=== PATIENT | male | born 1965 | race Caucasian/White ===

== ENCOUNTER 2024-12-13 09:01 | Outpatient (AMB) | payer OTHER, SELFPAY ==
--- NOTE | 2024-12-13 09:08 | A.OFFVIS_ITS ---
Vital Signs 12/13/24 09:09 Height 6 ft 1 in Weight 238 lb BMI 31.4 BP 136/88 Blood Pressure Location Rt brachial Position Sitting Pulse 82 Pulse Source Pulse Oximeter Pulse Oximetry (%) 97 Oxygen Delivery Method Room Air Intake Visit Reasons: 07/11LVM+Let ENP-Tremor Intake Note: Patient referred by [facility] for tremors Allergies Iodinated Contrast Media (Contrast Dye) Allergy (Severe, Verified 12/13/24 09:10) swelling Medication List - Last Reconciled 12/13/24 by Mima Staley MD atorvastatin 80 mg PO DAILY carbidopa-levodopa 25-100 mg 1 tab PO TID losartan 50 mg PO DAILY metformin 1,000 mg PO BID tadalafil 10 - 20 mg PO DAILY PRN HPI Comments Details: 59y/o Right handed male comes for evaluation of left hand tremors at rest. He started noticing tremors 3 years ago when he had a stressful event in his family. It was mild and intermittent but has mildly worsened. He also feels his left hand is tired and weaker , stiffer. he can still function . Speech- voice is softer, no drooling Hand writing- good No difficulty with using utensils, can dress and shower No trouble turning in bed Memory- good Sleep- interrupted sleep.He used to act out his dremas few years ago. Mood- stable Gait- going upstairs is difficult , mild slowing . he rogers d [place] last year when he tripped over the gas pump No exposure to agent orange no head injury .He used to work around pesticides No fh/o tremors Bowel movements stable Bladder- good [facility] Medical History (Updated 12/13/24 @ 09:53 by Mima Staley MD) Snoring Hypersomnia Parkinsons disease Hyperglycemia Depression Microscopic hematuria Hyperlipidemia HTN (hypertension) Surgical History H/O hand surgery Family History Mother Restless leg syndrome Social History Alcohol intake: current Patient Tobacco Use Status: Current everyday Tobacco user Physical Exam Vital Signs: Last Vital Signs Pulse 82 12/13/24 09:09 BP 136/88 12/13/24 09:09 Pulse Ox 97 12/13/24 09:09 Oxygen Delivery Method Room Air 12/13/24 09:09 BMI result Body Mass Index 31.4 Const General: cooperative, healthy appearing, comfortable and no acute distress Nutritional Appearance: obese Orientation/consciousness: patient oriented x3 Eyes Pupils: Equal, round and reactive pupils present Neuro Other: Mallampatti grade 4 Decreased facial expression and blink Speech - hypophonia Left UE rest tremors - moderate amplitude Left shoulder tight Tone increased karissa L>R FFM and foot taps - decreased L>R Gait - decreased arm swings karissa l>R, small steps, mild stoop General: patient oriented x3, moves all extremities and no focal motor deficits Cranial nerves: Yes Facial sensation intact/muscles of mastication intact, Yes Equal, round and reactive pupils present, Yes Bilaterally intact EOM present, Yes Normal facial strength present, Yes Midline tongue present, Yes Symmetric palate elevation present and Yes Ability to bilaterally elevate shoulders present Cognition (Neuro): normal cognition Motor exam (neuro): 5/5 motor strength present throughout Deep tendon reflexes (DTR's): Right triceps reflex intensity grade: 2+, Left triceps reflex intensity grade: 2+, Rt Biceps (C5, C6): 2+, Left biceps reflex intensity grade: 2+, Right brachioradialis reflex intensity grade: 2+, Left brachioradialis reflex intensity grade: 2+, Right patellar reflex intensity grade: 2+ and Left patellar reflex intensity grade: 2+ Coordination: [id number] test normal Assessment & Plan Assessment & Plan (1) Parkinsons disease: Code(s): G20.A1 - Parkinson's disease without dyskinesia, without mention of fluctuations Category: Medical Qualifiers: Dyskinesia presence: without dyskinesia Fluctuating manifestations: without fluctuating manifestations Qualified Code(s): G20.A1 - Parkinson's disease without dyskinesia, without mention of fluctuations (2) Hypersomnia: Code(s): G47.10 - Hypersomnia, unspecified Category: Medical (3) Snoring: Code(s): R06.83 - Snoring Category: Medical Plan Explained the diagnosis in detail . MRI brain to r/o structural causes I will trial him on higher dose carbidopa/elevodopa 25/100 - 2 tabs tid - interactions with protien discussed PT for gait training Home sleep test to r/o sleep apnea. Orders: Orders MR head/brain wo con Today G20.A1 - Parkinson's disease without dyskinesia, without mention of fluctuations RT home sleep study Today G47.10 - Hypersomnia, unspecified, R06.83 - Snoring PT Evaluation and Treatment Today G20.A1 - Parkinson's disease without dyskinesia, without mention of fluctuations Medications: New carbidopa-levodopa 25-100 mg 2 tabs PO TID 540 tabs 2RF 90 days Coding Level of Care Code New Pt Level 4 (34130) Complex EM visit Add On G2211 Diagnoses Parkinson's disease without dyskinesia or fluctuating manifestations G20.A1 Dyskinesia presence: without dyskinesia Fluctuating manifestations: without fluctuating manifestations Hypersomnia G47.10 Snoring R06.83
[2024-12-13 09:09] VITALS: BP 136/88; PULSE 82; O2SAT 97; BMI 31.4
--- OUTSIDE RECORDS SUMMARY | 2024-12-13 09:42 | XMS_ITS | Clinical Summary ---
Author Organization [address] Address [address] [place] [address] Phone Care Team Providers Care Facility Practice Specialist Name Role Phone Supa Dobson MD Primary Care Provider [phone] Allergies No known active allergies Medications tadalafiL (CIALIS) 20 mg tablet Take 1 tablet (20 mg total) by mouth 1 (one) time each day if needed for erectile dysfunction. Active Cortisporin-TC 3.3-3-10-0.5 mg/mL otic suspension SHAKE LIQUID AND INSTILL 4 DROPS TO AFFECTED EAR THREE TIMES DAILY 05/26/2024 Active metFORMIN (GLUCOPHAGE) 500 mg tablet Take 2 tablets (1,000 mg total) by mouth 2 (two) times a day. 08/26/2024 Active losartan (COZAAR) 50 mg tablet Take 1 tablet (50 mg total) by mouth 1 (one) time each day. 09/18/2024 Active carbidopa-levod opa (SINEMET) 25-100 mg per tablet Take 1 tablet by mouth. 08/18/2024 Active amoxicillin-cla vulanate (AUGMENTIN) 875-125 mg per tablet Take 1 tablet by mouth 2 (two) times a day. 05/17/2024 Active atorvastatin (LIPITOR) 80 mg tablet Take 1 tablet (80 mg total) by mouth 1 (one) time each day. 08/26/2024 Active Encounters Date Type Department Care Team Description 09/28/2024 Telephone Gastroenterology - [address] [address] Triston Bo MD from Last 3 Months Social History Tobacco Use Types Packs/Day Years Used Date Smoking Tobacco: Never Assessed Sex and Gender Information Value Date Recorded Sex Assigned at Not on file Legal Sex Male 10:52 AM EDT Gender Identity Not on file Sexual Orientation Not on file Plan of Treatment Health Maintenance Due Date Last Done Comments DTaP,Tdap,and Td Vaccines (1 - Tdap) 1986 Hepatitis B Vaccines (1 of 3 - 19+ 3-dose series) 1986 Pneumococcal Vaccine: 50+ Ye ars (1 of 1 - PCV) 2017 Zoster Vaccines (1 of 2) 2017 COVID-19 Vaccine (1 - 2023-2 5 season) 2024 Cholesterol Screening (Lipid Panel) 09/28/2024 Colorectal Cancer Screening: Colonoscopy 09/28/2024 Depression Screening 09/28/2024 HIV Screening 09/28/2024 Hepatitis C Screening 09/28/2024 Social Influencers of Health Screening 09/28/2024 Influenza Vaccine (Season Ended) 2025 HIB Vaccines Aged Out No longer eligi ble based on patient's age to complete this topic HPV Vaccines Aged Out No longer eligi ble based on patient's age to complete this topic Hepatitis A Vaccines Aged Out No long er eligible based on patient's age to complete this topic IPV Vaccines Aged Out No longer eligi ble based on patient's age to complete this topic MMR Vaccines Aged Out No longer eligi ble based on patient's age to complete this topic Meningococcal ACWY Vaccine Aged Out N o longer eligible based on patient's age to complete this topic Meningococcal B Vaccine Aged Out No l onger eligible based on patient's age to complete this topic Pneumococcal Vaccine: Pediat rics (0 to 5 Years) and At-Risk Patients (6 to 64 Years) Aged Out No longer eligible b ased on patient's age to complete this topic RSV Immunization Patients Un liya 20 months Aged Out No longer eligible b ased on patient's age to complete this topic Varicella Vaccines Aged Out No longer eligible based on patient's age to complete this topic Insurance [facility] Care Teams Facility Practice Specialist Relationship Specialty Start Date End Date Supa Dobson MD [address] [place] [id number] PCP - General Internal Medicine 09/28/24
== END 2024-12-13 10:04 | disposition home or self-care (01) ==
LOC: HO.HSMS 09:01
PROVIDERS: Visit Provider Psychiatry & Neurology Neurology
DX: G20.A1 Parkinson's disease without dyskinesia, without mention of fluctuations (principal); G47.10 Hypersomnia, unspecified; R06.83 Snoring
CPT/HCPCS: 99204

== ENCOUNTER 2025-01-31 07:38 | Outpatient (REF) | payer OTHER, SELFPAY ==
--- NOTE | ~2025-01-31 | MR_ITS ---
CLINICAL HISTORY: G20.A1 - Parkinsons disease without dyskinesia, without mention of fluc... MR brain without IV contrast Comparison: None provided Findings: No abnormal diffusion restriction to suggest acute ischemia. No intracranial hemorrhage or extra-axial fluid collection. No intracranial mass, positive mass-effect, midline shift or hydrocephalus. Normal flow void within the intracranial vessels. Scattered supratentorial periventricular and deep T2/FLAIR hyperintense white matter signals, mostly in the subcortical region, no apparent corpus callosum involvement. Orbital contents are within normal range. Severe mucoperiosteal thickening of the paranasal sinuses, worst involving the left maxillary sinus. Mastoid air cells clear. Calvarium and superficial soft tissue are unremarkable. Impression: 1. No acute intracranial finding. 2. Nonspecific mild white matter signals, most frequently ascribed to chronic small vessel ischemic disease. 3. Paranasal sinusitis. This document has been electronically signed by: Anupama Kramer MD on 01/31/2025 15:25:15
--- OUTSIDE RECORDS SUMMARY | 2025-01-31 07:42 | XMS_ITS | Clinical Summary ---
Author Organization [facility] [address] [facility] Address [address] [place] [address] Phone Care Team Providers Care Mold Sheet Cleaner Name Role Phone Supa Dobson MD Primary Care Provider [phone] Allergies No known active allergies Medications tadalafiL [...] 1 (one) time each day. 08/26/2024 Active Social History Tobacco Use Types Packs/Day Years [...] Vaccine (1 - 2023-2 5 season) 2024 Depression Screening 06/21/2024 Cholesterol Screening (Lipid Panel) 09/28/2024 Colorectal Cancer Screening: Colonoscopy 09/28/2024 HIV Screening 09/28/2024 Hepatitis C Screening 09/28/2024 Social Influencers of Health Screening 09/28/2024 Influenza Vaccine (#1) 2025 HIB Vaccines Aged Out No longer [...] patient's age to complete this topic Insurance [facility] [employer] Care Teams Mold Sheet Cleaner Relationship Specialty Start Date End Date Supa Dobson MD [address] [place] [address] PCP - General Internal Medicine 09/28/24
== END 2025-01-31 07:39 | disposition home or self-care (01) ==
LOC: HO.MRI 07:38
PROVIDERS: Visit Provider Psychiatry & Neurology Neurology
DX: G20.A1 Parkinson's disease without dyskinesia, without mention of fluctuations (principal)
CPT/HCPCS: 70551

== ENCOUNTER → 2025-01-31 08:03 | Outpatient (BNV) | payer OTHER, SELFPAY | PROVIDERS: Visit Provider Radiology Diagnostic Radiology | DX: R90.82 White matter disease, unspecified (principal) | CPT/HCPCS: 70551 ==